=== PATIENT | male | born 1950 | race Caucasian/White ===

== ENCOUNTER 2017-03-08 05:58 | Inpatient (IN) ==
--- NOTE | 2017-03-08 06:39 | History & Physical Report ---
Date of Encounter: 03/08/17 Time of Encounter: 06:38 24 Hour HP Update - Instructions Instructions: If the History and Physical is less than 30 days old and was completed prior to A.M. admission and or procedure and has NOT been updated on calendar day of procedure please complete this update prior to performing procedure. - Update Patient reports changes in Medical Condition: No Changes in examination, assessment, or condition: No Changes in Medication: No Preop tests/diagnostics Reviewed: Yes Surgery Remains Indicated: Yes Consent for Planned Operative Procedure(s) Verified: Yes - Pre-Operative Checklist Preoperative Checklist Indicated: No Prophylactic Antibiotic Ordered: Yes Is VTE Prophylaxis Indicated?: Yes
[2017-03-08] MEDS ORDERED: CeFAZolin Pre 2,000 MG/100 ML 2,000 MG/100 ML BAG IVPB ONE (06:40)
[2017-03-08] MEDS ORDERED: Lidocaine -MPF 1% 2 ML VIAL ID ONE (06:40)
[2017-03-08] MEDS ORDERED: Ringers Solution, Lactated 1,000 ML IVC SCH ×2 (06:45→11:09)
--- NOTE | 2017-03-08 06:53 | Anesthesia Evaluation PreOp ---
Date of Encounter: 03/08/17 Time of Encounter: 06:51 - Past History Planned Operation: bilat tka Cardiac History: HTN, Hyperlipidemia Pulmonary History: Snore BRAKE LINING MAKER History: Denies Any Significant HX Other Medical History: Renal (stones) Anesthesia History: No Prior Anesthetic Complications, Past Anesthesia (r knee arth x 3, l knee arth x 2, cholecyst, bilat ctr) Alcohol Use: occasionally Drug use: none Medications and Allergies Allergies No Known Allergies Allergy (Unverified 02/22/17 08:44) - Meds/Allergy Pre-op Review Medications Reviewed: Yes Allergies Reviewed: Yes Beta Blockers on Current Med List: No Anesthesia Results - Labs Laboratory Tests 02/22/17 02/22/17 02/22/17 08:54 08:54 08:54 Hgb 14.4 Hct 43.6 Plt Count 215 PT 10.6 INR 1.0 APTT 32.3 Sodium 141 Potassium 4.5 Creatinine 1.28 H - Imaging EKG: report reviewed (nsr) Anesthesia Exam O2 Sat Height 1.8 m Height 1.8 m Height 1.8 m Weight 112.945 kg Weight 112.945 kg Weight 112.945 kg O2 Sat by Pulse Oximetry 99 O2 Sat by Pulse Oximetry 99 Vital Signs Temp Pulse Resp BP Pulse Ox 97.6 F 69 18 159/75 99 03/08/17 06:20 03/08/17 06:20 03/08/17 06:20 03/08/17 06:20 03/08/17 06:20 Height: 1.8 Weight: 112 NPO (# of Hours): >8 - HEENT Pupil (Motor): Pupils equal, EOMI Mallampati: III Oral Opening: Greater than 3 - BRAKE LINING MAKER LOC: Oriented BRAKE LINING MAKER Motor: Normal RUE, Normal LUE, Normal RLE, Normal LLE, Normal Face BRAKE LINING MAKER Sensory: Normal: RUE, LUE, RLE, LLE, Face - Cardiac Rhythm: Regular Murmur: None - Pulmonary Breath Sounds: bilateral Clear Respiratory Effort: Symmetrical Anesthesia Assess/Plan ASA Score: 2 Modified Sultana Scale for Level of Consciousness: Cooperative, oriented, and tranquil Anesthetic Plan: Regional, MAC Monitoring Plan: Standard Monitors Recovery Plan: PACU
[2017-03-08] MEDS ORDERED: *HR* Midazolam HCl 5 MG/5 ML VIAL IVP ONE (07:11)
[2017-03-08] MEDS ORDERED: *HR* Propofol 200 MG/20 ML VIAL IVP ONE (07:12)
[2017-03-08] MEDS ORDERED: *HR* FentaNYL (PF) 100 MCG/2 ML VIAL ONE ×2 (07:12→07:36)
[2017-03-08] MEDS ORDERED: Lidocaine -MPF 2% 2 ML VIAL ONE (07:12)
[2017-03-08] MEDS ORDERED: *HR* Succinylcholine 200 MG/10 ML VIAL IVP ONE (07:12)
[2017-03-08] MEDS ORDERED: *HR* Morphine Sulfate/PF 10 MG/10 ML AMPUL ONE (07:30)
[2017-03-08] MEDS ORDERED: Propofol 500 MG/50 ML INFUS..BTL ONE ×2 (07:31→08:47)
--- NOTE | 2017-03-08 07:38 | Discharge Summary ---
Date of Encounter: 03/11/17 Time of Encounter: 07:45 - Discharge Diagnosis (1) Degenerative arthritis of knee, bilateral Priority: Primary Status: Acute Qualifiers: Osteoarthritis type: primary Qualified Code(s): M17.0 - Bilateral primary osteoarthritis of knee (2) Hyperlipidemia Priority: Secondary Status: Chronic Qualifiers: Hyperlipidemia type: unspecified Qualified Code(s): E78.5 - Hyperlipidemia , unspecified (3) Obesity (BMI 30.0-34.9) Priority: Secondary Status: Chronic (4) Acute blood loss anemia Priority: Primary Status: Acute - Discharge Medications Home Medications: Cholecalciferol (D-3) [Vitamin D] 1,000 unit PO DAILY 03/08/17 [History] Enoxaparin [Lovenox] 40 mg SQ Q12HR #14 syr 03/08/17 [Rx] Fenofibrate [Lofibra] 160 mg PO DAILY 03/08/17 [History] Lactobacillus Combination No.8 [Adult Probiotic] 1 cap PO DAILY 03/08/17 [ History] Losartan Potassium [Cozaar] 100 mg PO DAILY 03/08/17 [History] Magnesium Oxide [Magnesium] 400 mg PO DAILY 03/08/17 [History] [place]-3/Dha/Epa/Fish Oil [[place]-3 Fish Oil 1,000 mg Sfgl] 1,000 mg PO DAILY 11/24 [History] OxyCODONE Immed Rel [Roxicodone 5 MG] 5 - 10 mg PO Q6HR PRN #40 tablet 03/08/17 [Rx] Tamsulosin [Flomax] 0.4 mg PO DAILY 03/08/17 [History] Allergies/Adverse Reactions: Allergies No Known Allergies Allergy (Verified 03/08/17 07:28) Primary care physician: Azeem Walton MD - Patient Status Disposition: Transfer Inpatient Rehab Fac Condition: Good Functional capacity at discharge: uses cane/walker Overall status at discharge: patient is progressing back to baseline - Discharge Instructions Follow Up With: Silver Alamo MD [Partnered Physician] - 04/07/17 4:55 pm Andree Collins PAC [Physician Linker Up] - 03/18/17 8:00 am Azeem Walton MD [Primary Care Provider] - - Hospital Course Hospital course: Mr. Wheat is a 66 year old male The patient had an uneventful postoperative course. They received antibiotics and physical therapy and were discharged in stable condition. There will follow -up in the office in 2 weeks. Patient is an elevation of his creatinine normalized after fluid, Lovenox for DVT prophylaxis - Time Spent with Patient Total time spent providing and/or coordinating discharge services:
[2017-03-08] MEDS ORDERED: Ondansetron 4 MG/2 ML VIAL ONE (09:01)
[2017-03-08] MEDS ORDERED: Dexamethasone 4 MG/ML VIAL ONE (09:01)
[2017-03-08] MEDS ORDERED: *HR* Promethazine 25 MG/ML VIAL IVP PRN ×2 (09:10→18:31)
[2017-03-08] MEDS ORDERED: Ondansetron 4 MG/2 ML VIAL IVP ONE (09:10)
--- NOTE | 2017-03-08 09:11 | Orthopedic Operative Note ---
Date of procedure: 03/08/17 Pre-op diagnosis: Bilateral knee arthritis Post-op diagnosis: same Procedure: Procedure: Bilateral Total knee replacement Estimated blood loss: 800 cc Hardware: Arthrex Femur: 7 Tibia: 7 PS insert: 11 Patella: 40 implants for both knees Exam Under anesthesia: Bilateral knees loss of full extension 10 degrees varus alignment no instability Procedural Notes: Grade 4 arthritic changes medial compartment patellofemoral joint. Operative procedure: The patient was brought to the operating room and placed on the operating room table. After general anesthesia was administered the operative knees were examined. Findings were noted in the exam under anesthesia. Both operative extremity was prepped and draped in sterile surgical fashion. The patient received IV antibiotics prior to skin incision. Surgery began with the left knee followed by the right knee. The following is the dictation for both knees. Any variation for either knee will be called out at the appropriate step. A standard midline incision was made centered over the patella. The incision was made through the skin and subcutaneous tissue. A medial parapatellar tendon approach was performed. Care was taken to preserve tissue along the medial aspect of the patella. And to protect the patella tendon. The deep MCL was released off the medial tibia. The infra patella fat pad was excised. Knee was brought into flexion. Patient noted to have grade 4 arthritic changes medial compartment patellofemoral joint both knees. The entry hole was made for the intramedullary femoral guide. The guide was seated in 6 degrees of valgus. Anterior cut was made followed by the distal cut. The ACL the PCL the medial and the lateral menisci were excised. The tibia was subluxed forward. The entry hole was made for the intramedullary tibial guide. Guide was seated to resect 2 mm off the more abnormal side. The knee was brought into flexion the distal femur was sized 7. The femoral guide was seated , the anterior cut was made followed by the posterior condylar cut, followed by the chamfer cuts. The finishing guide was seated the box cut was made and the lug holes were drilled. The tibia was sized 7, the tibial tray was seated and prepared with the large drill followed by the fin cutter. Trial reduction revealed full extension no varus valgus instability with the appropriate 11 PS Geetha. The patella was everted and cut was made at the level of the insertion of the quadriceps and patella tendon. The patella was sized 40 the guide was seated and the lug holes are drilled. Trial reduction revealed excellent patella tracking. All trial components were removed all bony surfaces were irrigated. The tibia was cemented first followed by the femur. The 11 PS Geetha was seated and the knee was brought into full extension. The patella was cemented and held in place with the patellar holding clamp. After the cement had hardened, the knee sat for 2 minutes with a Betadine saline solution. The knee was then irrigated out with 2 L of pulse irrigation. The extensor mechanism was closed over Gelfoam soaked in vancomycin with #2 FiberWire suture and #2 PDS suture. The subcutaneous tissue was then irrigated and closed deep with #1 PDS suture superficially with 0 PDS suture and skin was closed with skin deven. The patient was then placed in a sterile dressing and a postoperative brace extubated and transferred to recovery room in stable condition. Anesthesia: MAC, spinal, epidural Surgeon: Silver Alamo Freelance Operator: Andree Collins Condition: stable Disposition: PACU
[2017-03-08] MEDS ORDERED: *HR* HYDROmorphone 2 MG/ML SYRINGE ONE (09:43)
[2017-03-08] MEDS ORDERED: Acetaminophen IV 1,000 MG/100 ML INFUS..BTL ONE (09:50)
[2017-03-08] MEDS: *HR* HYDROmorphone (PF) 1 MG/ML SYRINGE IVP PRN ×3 (10:11→10:35)
[2017-03-08] MEDS ORDERED: *HR* HYDROmorphone (PF) 1 MG/ML SYRINGE ONE ×2 (10:12→10:33)
--- NOTE | 2017-03-08 10:14 | Anesthesia Procedures ---
Date of Encounter: 03/08/17 Time of Encounter: 07:43 Procedures: Anesthesia - Epidural/Spinal Patient ID/Chart reviewed: Yes Patient examined: Yes Sedation: Versed (mg): 3 Site Prep: Povidone-Iodine 1% Patient position: upright Local Anesthetic: Lidocaine 1% Amount of Local Anesthetic used: 3 Touhy Needle Gauge: 18 Touhy Needle Depth (cm): 8 Catheter Depth at Skin (cm): 13 Procedure: CSEA x 1 attempt with strict asepsis at L3-4 interspace. Clear CSF thru 27 g spinal needle. 1.6ml 0.75% bupivicaine with 0.25mg duramorph and 10 mcg fentanyl after poitive swirl. Epidural cathetar inserted to 13cm at skin and taped in place. No parasthesia, no heme, patient tolerated without complaint. Vitals + FHT's: VS as per anesthesia record.
[2017-03-08 10:17] LABS: Hemoglobin 12.8 g/dL (12.9-16.9)
--- NOTE | 2017-03-08 10:49 | Anesthesia Evaluation Post Op ---
Date of Encounter: 03/08/17 Time of Encounter: 10:48 - Vital Signs Vital Signs: Vital Signs/O2 Sat, Most Current Temp Pulse Resp BP Pulse Ox 97.4 F L 70 17 124/71 95 03/08/17 10:15 03/08/17 10:35 03/08/17 10:35 03/08/17 10:35 03/08/17 10:35 - Lungs Lungs: Clear Ascult./Percussion - Airway Airway: Non-obstructed - Cardiovascular Regular Rate - Mental Status Mental Status: Alert & Oriented, Answers Appropriately - Pain Pain Scale: 6 - Nausea Vomiting Nausea Vomiting: Not Present - Hydration Hydration: Ice chips, Has not voided - Discharge PostOp Status: Transfer Patient to floor
[2017-03-08] MEDS ORDERED: *HR* OxyCODONE Immed Rel 5 MG TABLET PO PRN (11:09)
[2017-03-08] MEDS ORDERED: MOM Conc 10 ML UD.LIQ PO PRN (11:09)
[2017-03-08] MEDS ORDERED: Temazepam 15 MG CAPSULE PO PRN (11:09)
[2017-03-08] MEDS ORDERED: Naloxone 0.4 MG/ML INJ IVP PRN (11:09)
[2017-03-08] MEDS ORDERED: Sennosides 8.6 MG TABLET PO PRN (11:09)
[2017-03-08] MEDS: Acetaminophen 325 MG TABLET PO PRN ×2 (12:34→22:36)
[2017-03-08] MEDS: Lactobacillus 1 EACH CAP.SPRINK PO SCH (15:09)
[2017-03-08] MEDS: Cholecalciferol (D-3) 1,000 UNIT TABLET PO SCH (15:09)
[2017-03-08] MEDS: OMEGA FISH OIL PO SCH (15:09)
[2017-03-08] MEDS: Fenofibrate 54 MG TABLET PO SCH (15:09)
[2017-03-08] MEDS: Magnesium Oxide 400 MG TABLET PO SCH (15:09)
[2017-03-08] MEDS: Ondansetron 4 MG/2 ML VIAL IVP PRN (15:10)
[2017-03-08] MEDS: ceFAZolin 2,000 MG in D5% in Water 100 ML IVPB SCH ×2 (16:28→23:02)
[2017-03-08] MEDS: *HR* Enoxaparin 30 MG/0.3 ML SYRINGE SQ SCH (16:29)
[2017-03-08] MEDS ORDERED: *HR* Enoxaparin 30 MG/0.3 ML SYRINGE SQ SCH (18:00)
[2017-03-09 05:21] LABS: Hematocrit 33.1 % (37.5-50.1); Hemoglobin 11.4 g/dL (12.9-16.9)
[2017-03-09] MEDS: *HR* Enoxaparin 30 MG/0.3 ML SYRINGE SQ SCH ×2 (05:46→16:39)
[2017-03-09 05:57] LABS: BUN/Creatinine Ratio 20 (6-26); Blood Urea Nitrogen 26 mg/dL (8-26); Calcium 8.9 mg/dL (8.6-10.8); Carbon Dioxide 27 mEq/L (19-29); Chloride 102 mEq/L (98-109); Glucose 198 mg/dL (70-99); Osmolality,Calculated 292 (280-300); Potassium 4.6 mEq/L (3.5-4.5); Sodium 136 mEq/L (136-145); eGFR For African Americans > 60 (> 60); eGFR For Non-African Americans 54 (> 60)
--- NOTE | 2017-03-09 06:37 | Orthopedics Progress Note ---
Date of Encounter: 03/09/17 Time of Encounter: 06:37 - Assessment and Plan (1) Degenerative arthritis of knee, bilateral Current Visit: Yes Status: Acute Qualifiers: Osteoarthritis type: primary Qualified Code(s): M17.0 - Bilateral primary osteoarthritis of knee (2) Hyperlipidemia Current Visit: Yes Status: Chronic Qualifiers: Hyperlipidemia type: unspecified Qualified Code(s): E78.5 - Hyperlipidemia , unspecified (3) Obesity (BMI 30.0-34.9) Current Visit: Yes Status: Chronic Subjective Interval history: Patient was seen this morning doing well without complaints. Afebrile vital signs stable. Operative extremity: Neurovascularly intact Dressing clean dry and intact Calves nontender Assessment and plan: Continue with postoperative care Hematocrit 33 Objective Vital signs: Vital Signs Temp Pulse Resp BP Pulse Ox 03/09/17 04:12 98.2 F 82 18 141/75 99 03/08/17 23:33 98.0 F 83 17 150/77 99 03/08/17 19:38 97.9 F 88 17 156/78 99 03/08/17 15:34 85 14 142/85 96 03/08/17 13:36 97.9 F 85 14 142/85 96 03/08/17 12:13 98.1 F 76 15 144/86 96 03/08/17 11:30 97.5 F L 95 14 146/91 95 03/08/17 11:05 97.5 F L 63 14 132/77 95 03/08/17 10:45 97.5 F L 79 16 134/71 95 03/08/17 10:35 70 17 124/71 95 03/08/17 10:25 69 20 123/69 97 03/08/17 10:15 97.4 F L 69 18 113/62 97 03/08/17 10:05 65 18 114/72 98 03/08/17 09:55 66 14 112/64 98 03/08/17 09:45 97.7 F 69 12 143/72 100 03/08/17 06:42 97.6 F 69 18 159/75 99 Intake and Output 03/08/17 03/08/17 03/09/17 15:59 23:59 07:59 Intake Total 100 / 100 1100 / 1100 100 / 100 Output Total 850 / 850 950 / 950 250 / 250 Balance -750 / -750 150 / 150 -150 / -150 Intake: IV Fluids 100 / 100 1100 / 1100 100 / 100 Lactated Ringers 1,000 ML 1000 / 1000 @ 25 mls/hr IVC .Q24H JONATHAN Rx#:[id number] Ancef 2,000 MG In 100 / 100 100 / 100 Dextrose 5% 100 ML @ 200 mls/hr IVPB Q8H JONATHAN Rx#: [id number] Ancef Premix 2,000 MG/100 100 / 100 ML 2,000 mg In 100 ml @ 200 mls/hr IVPB PREOP ONE Rx#:[id number] Oral 0 / 0 Output: Urine 250 / 250 Emesis 50 / 50 Estimated Blood Loss 800 / 800 Straight Cath 950 / 950 Other: Meal Dinner Percent of Meal Consumed 100% # Voids 1 - Labs CBC & BMP: 03/09/17 04:55 03/09/17 04:55 Labs: Abnormal lab results Hgb 11.4 g/dL (12.9-16.9) L 03/09/17 04:55 Hct 33.1 % (37.5-50.1) L 03/09/17 04:55 Potassium 4.6 mEq/L (3.5-4.5) H 03/09/17 04:55 Creatinine 1.33 mg/dL (0.72-1.25) H 03/09/17 04:55 Est GFR (Non-Af Amer) 54 (> 60) L 03/09/17 04:55 Glucose 198 mg/dL (70-99) H 03/09/17 04:55 - VTE Documentation of Mechanical Device: Venous foot pump, device Consult Discharge Plan - Plan Referrals: Azeem Walton MD [Primary Care Provider] -
[2017-03-09] MEDS: OMEGA FISH OIL PO SCH (08:01)
[2017-03-09] MEDS: *HR* HYDROmorphone (PF) 1 MG/ML SYRINGE IVP PRN ×4 (08:04→19:54)
[2017-03-09] MEDS: Cholecalciferol (D-3) 1,000 UNIT TABLET PO SCH (08:04)
[2017-03-09] MEDS: Lactobacillus 1 EACH CAP.SPRINK PO SCH (08:04)
[2017-03-09] MEDS: Magnesium Oxide 400 MG TABLET PO SCH (08:05)
[2017-03-09] MEDS: Fenofibrate 54 MG TABLET PO SCH (08:05)
[2017-03-09] MEDS: Ondansetron 4 MG/2 ML VIAL IVP PRN (08:13)
[2017-03-09] MEDS: *HR* OxyCODONE Immed Rel 5 MG TABLET PO PRN ×2 (09:31→15:22)
[2017-03-10] MEDS: *HR* OxyCODONE Immed Rel 5 MG TABLET PO PRN ×5 (00:49→19:51)
[2017-03-10] MEDS: *HR* HYDROmorphone (PF) 1 MG/ML SYRINGE IVP PRN ×3 (03:49→17:51)
[2017-03-10 05:29] LABS: Hematocrit 30.1 % (37.5-50.1)
[2017-03-10 05:46] LABS: Potassium 4.1 mEq/L (3.5-4.5)
[2017-03-10 05:47] LABS: Calcium 9.1 mg/dL (8.6-10.8)
[2017-03-10] MEDS: *HR* Enoxaparin 30 MG/0.3 ML SYRINGE SQ SCH ×2 (06:11→17:45)
--- NOTE | 2017-03-10 07:53 | Orthopedics Progress Note ---
Date of Encounter: 03/10/17 Time of Encounter: 07:53 - Assessment and Plan (1) Degenerative arthritis of knee, bilateral Current Visit: Yes Status: Acute Qualifiers: Osteoarthritis type: primary Qualified Code(s): M17.0 - Bilateral primary osteoarthritis of knee (2) Hyperlipidemia Current Visit: Yes Status: Chronic Qualifiers: Hyperlipidemia type: unspecified Qualified Code(s): E78.5 - Hyperlipidemia , unspecified (3) Obesity (BMI 30.0-34.9) Current Visit: Yes Status: Chronic Subjective Interval history: Patient was seen this morning doing well without complaints. Afebrile vital signs stable. Operative extremity: Neurovascularly intact Dressing clean dry and intact Calves nontender Assessment and plan: Continue with postoperative care Hematocrit 30 Objective Vital signs: Vital Signs Temp Pulse Resp BP Pulse Ox 03/10/17 06:32 98.7 F 109 16 145/61 94 03/10/17 04:12 98.1 F 108 16 94/58 92 03/10/17 01:31 98.4 F 108 16 160/70 95 03/09/17 20:09 98.8 F 110 16 111/58 92 03/09/17 15:45 98.4 F 93 18 127/62 96 03/09/17 11:18 98.7 F 95 16 152/60 99 Intake and Output 03/09/17 03/09/17 03/10/17 15:59 23:59 07:59 Intake Total 120 / 120 720 / 720 Output Total 850 / 850 Balance 120 / 120 720 / 720 -850 / -850 Intake: Oral 120 / 120 720 / 720 Output: Urine 850 / 850 Other: Meal Breakfast Dinner Percent of Meal Consumed 100% 100% - Labs CBC & BMP: 03/10/17 04:03 03/10/17 04:03 Labs: Abnormal lab results Hgb 10.0 g/dL (12.9-16.9) L 03/10/17 04:03 Hct 30.1 % (37.5-50.1) L 03/10/17 04:03 Sodium 135 mEq/L (136-145) L 03/10/17 04:03 BUN 34 mg/dL (8-26) H 03/10/17 04:03 Creatinine 1.49 mg/dL (0.72-1.25) H 03/10/17 04:03 Est GFR ( Amer) 57 (> 60) L 03/10/17 04:03 Est GFR (Non-Af Amer) 47 (> 60) L 03/10/17 04:03 Glucose 187 mg/dL (70-99) H 03/10/17 04:03 - VTE Documentation of Mechanical Device: Venous foot pump, device Consult Discharge Plan - Plan Referrals: Azeem Walton MD [Primary Care Provider] -
[2017-03-10] MEDS: Cholecalciferol (D-3) 1,000 UNIT TABLET PO SCH (09:28)
[2017-03-10] MEDS: Lactobacillus 1 EACH CAP.SPRINK PO SCH (09:29)
[2017-03-10] MEDS: Magnesium Oxide 400 MG TABLET PO SCH (09:29)
[2017-03-10] MEDS: Fenofibrate 54 MG TABLET PO SCH (09:29)
[2017-03-10] MEDS: OMEGA FISH OIL PO SCH (09:31)
[2017-03-11 04:26] LABS: BUN/Creatinine Ratio 21 (6-26); Blood Urea Nitrogen 25 mg/dL (8-26); Calcium 8.5 mg/dL (8.6-10.8); Carbon Dioxide 28 mEq/L (19-29); Chloride 99 mEq/L (98-109); Glucose 167 mg/dL (70-99); Osmolality,Calculated 284 (280-300); Potassium 4.4 mEq/L (3.5-4.5); Sodium 133 mEq/L (136-145); eGFR For African Americans > 60 (> 60); eGFR For Non-African Americans > 60 (> 60)
[2017-03-11] MEDS: *HR* Enoxaparin 30 MG/0.3 ML SYRINGE SQ SCH ×2 (04:48→17:56)
[2017-03-11] MEDS: *HR* OxyCODONE Immed Rel 5 MG TABLET PO PRN ×3 (04:48→17:56)
--- NOTE | 2017-03-11 07:45 | Orthopedics Progress Note ---
Date of Encounter: 03/11/17 Time of Encounter: 07:44 - Assessment and Plan (1) Degenerative arthritis of knee, bilateral Current Visit: Yes Status: Acute Qualifiers: Osteoarthritis type: primary Qualified Code(s): M17.0 - Bilateral primary osteoarthritis of knee (2) Hyperlipidemia Current Visit: Yes Status: Chronic Qualifiers: Hyperlipidemia type: unspecified Qualified Code(s): E78.5 - Hyperlipidemia , unspecified (3) Obesity (BMI 30.0-34.9) Current Visit: Yes Status: Chronic Subjective Interval history: Patient was seen this morning doing well without complaints. Afebrile vital signs stable. Operative extremity: Neurovascularly intact Dressing clean dry and intact Calves nontender Assessment and plan: Continue with postoperative care Discharge today Objective Vital signs: Vital Signs Temp Pulse Resp BP Pulse Ox 03/11/17 06:47 98.5 F 95 16 137/69 97 03/11/17 00:02 99.5 F 112 17 148/54 03/10/17 20:31 98.4 F 111 16 148/64 95 03/10/17 16:19 98.6 F 110 16 128/57 94 03/10/17 12:06 98.5 F 114 16 113/67 96 Intake and Output 03/10/17 03/10/17 03/11/17 15:59 23:59 07:59 Intake Total 1000 / 1000 1000 / 1000 Output Total 400 / 400 Balance 600 / 600 1000 / 1000 Intake: IV Fluids 1000 / 1000 1000 / 1000 0.45% Sodium Chloride 1000 / 1000 1000 / 1000 1000 Ml 1000 Ml 1,000 ML @ 125 mls/hr IVC .Q8H JONATHAN Rx#:[id number] Output: Urine 400 / 400 Other: # Voids 1 - Labs CBC & BMP: 03/10/17 04:03 03/11/17 04:02 Labs: Abnormal lab results Hgb 10.0 g/dL (12.9-16.9) L 03/10/17 04:03 Hct 30.1 % (37.5-50.1) L 03/10/17 04:03 Sodium 133 mEq/L (136-145) L 03/11/17 04:02 Glucose 167 mg/dL (70-99) H 03/11/17 04:02 Calcium 8.5 mg/dL (8.6-10.8) L 03/11/17 04:02 - VTE Documentation of Mechanical Device: Venous foot pump, device Consult Discharge Plan - Plan Referrals: Silver Alamo MD [Partnered Physician] - 04/07/17 4:55 pm Andree Collins, PAC [Physician Ultimate Hoops Scoreboard Operator] - 03/18/17 8:00 am Azeem Walton MD [Primary Care Provider] -
[2017-03-11] MEDS: Magnesium Oxide 400 MG TABLET PO SCH (09:37)
[2017-03-11] MEDS: Lactobacillus 1 EACH CAP.SPRINK PO SCH (09:37)
[2017-03-11] MEDS: Cholecalciferol (D-3) 1,000 UNIT TABLET PO SCH (09:38)
[2017-03-11] MEDS: Fenofibrate 54 MG TABLET PO SCH (09:38)
[2017-03-11] MEDS: OMEGA FISH OIL PO SCH (09:38)
[2017-03-11 15:40] VITALS: BP 124/61
== END 2017-03-11 18:42 | DRG 462 ==
LOC: SAMDAY 05:58 → 3NENU 10:49
PROVIDERS: ADMIT Orthopaedic Surgery; ATTEND Orthopaedic Surgery